=== PATIENT | female | born 1975 | race Caucasian/White ===

== ENCOUNTER 2023-07-25 09:55 | Emergency (ER) | payer SELFPAY ==
[2023-07-25 10:02] VITALS: BP 145/71; PULSE 75; RESP 20; TEMP 99.5; BMI 29.0
[2023-07-25] MEDS ORDERED: ONDANSETRON 4 MG/2 ML VIAL ONE (12:23)
[2023-07-25 12:28] LABS: HEMATOCRIT 33.3 % (32.4-45.2); MCH 20.4 pg (25.7-33.7); MEAN CELL VOLUME 68.2 fl (80-96); MEAN PLT VOLUME 7.2 fl (7.5-11.1); PLATELET COUNT 480 10^3/uL (134-434); RBC 4.89 M/mm3 (3.60-5.2); RDW 18.2 % (11.6-15.6); WHITE BLOOD COUNT 26.1 K/mm3 (4.0-10.0)
[2023-07-25 12:31] LABS: URINE APPEARANCE CLEAR; URINE BILIRUBIN NEGATIVE (NEGATIVE); URINE COLOR YELLOW; URINE GLUCOSE (UA) 3+ (NEGATIVE); URINE KETONE TRACE (NEGATIVE); URINE LEUK ESTERASE NEGATIVE (NEGATIVE); URINE NITRITE NEGATIVE (NEGATIVE); URINE PROTEIN NEGATIVE (NEGATIVE); URINE UROBILINOGEN 0.2 mg/dL (0.2-1.0)
[2023-07-25] MEDS: SODIUM CHLORIDE 0.9% 500 ML INFUS.BAG IV ONE (12:31)
[2023-07-25] MEDS: ONDANSETRON 4 MG/2 ML VIAL IVPB ONE (12:31)
[2023-07-25 12:34] LABS: HCG,QUALITATIVE URINE Negative
[2023-07-25 12:50] LABS: POTASSIUM 3.9 mmol/L (3.5-5.1)
[2023-07-25 12:52] LABS: ALBUMIN 3.3 g/dl (3.4-5.0); BLOOD UREA NITROGEN 11.4 mg/dL (7-18)
[2023-07-25 12:53] LABS: CALCIUM 8.8 mg/dL (8.5-10.1)
[2023-07-25 12:56] LABS: CREATININE 0.7 mg/dL (0.55-1.3)
[2023-07-25 12:57] LABS: BILIRUBIN,TOTAL 0.6 mg/dL (0.2-1)
[2023-07-25] MEDS ORDERED: ACETAMINOPHEN INJECTION 100 ML IVPB ONE (13:10)
[2023-07-25] MEDS ORDERED: FAMOTIDINE 20 MG/50 ML IVPB 20 MG/50 ML MG IVPB ONE (13:10)
[2023-07-25] MEDS: ACETAMINOPHEN 1000 MG/100 ML BAG IVPB ONE (13:10)
[2023-07-25 13:11] LABS: ANISOCYTOSIS 1+
[2023-07-25] MEDS: FAMOTIDINE 20 MG/50 ML IVPB 20 MG/50 ML MG IVPB ONE (13:11)
== END 2023-07-25 16:05 | disposition home or self-care (01) ==
LOC: JER 09:55
PROC: 3E033GC Introduction of Other Therapeutic Substance into Peripheral Vein, Percutaneous Approach (ICD-10-PCS; principal; 2023-07-25)
PROC: 3E030NZ Introduction of Analgesics, Hypnotics, Sedatives into Peripheral Vein, Open Approach (ICD-10-PCS; 2023-07-25)
PROC: 3E030GC Introduction of Other Therapeutic Substance into Peripheral Vein, Open Approach (ICD-10-PCS; 2023-07-25)
DX: K52.9 Noninfective gastroenteritis and colitis, unspecified (principal); R11.2 Nausea with vomiting, unspecified; R10.31 Right lower quadrant pain; R10.32 Left lower quadrant pain
CPT/HCPCS: 36415; 74177-TC; 80053; 81003; 84703; 85025; 87086; 99285-25; J0131; Q9967

== ENCOUNTER 2024-06-03 11:24 | Emergency (ER) | payer SELFPAY ==
[2024-06-03 11:40] VITALS: BP 133/51; PULSE 77; RESP 17; TEMP 98.2; BMI 32.9
[2024-06-03 12:40] LABS: URINE APPEARANCE CLEAR; URINE BILIRUBIN NEGATIVE (NEGATIVE); URINE COLOR YELLOW; URINE GLUCOSE (UA) 3+ (NEGATIVE); URINE KETONE NEGATIVE (NEGATIVE); URINE LEUK ESTERASE NEGATIVE (NEGATIVE); URINE NITRITE NEGATIVE (NEGATIVE); URINE PROTEIN NEGATIVE (NEGATIVE); URINE UROBILINOGEN 0.2 mg/dL (0.2-1.0)
[2024-06-03 12:42] LABS: HCG,QUALITATIVE URINE Negative
[2024-06-03] MEDS ORDERED: LIDOCAINE 4% PATCH TP ONE (12:53)
[2024-06-03] MEDS ORDERED: METHOCARBAMOL 500 MG TABLET ONE (12:53)
[2024-06-03] MEDS ORDERED: KETOROLAC TROMETHAMINE 30 MG/1 ML VIAL ONE (12:53)
[2024-06-03] MEDS: KETOROLAC TROMETHAMINE 30 MG/1 ML VIAL IM ONE (12:59)
[2024-06-03] MEDS: METHOCARBAMOL 500 MG TABLET PO ONE (12:59)
[2024-06-03] MEDS: LIDOCAINE 4% PATCH TP ONE (12:59)
== END 2024-06-03 13:47 | disposition home or self-care (01) ==
LOC: JERFT 11:24
PROC: 3E0233Z Introduction of Anti-inflammatory into Muscle, Percutaneous Approach (ICD-10-PCS; principal; 2024-06-03)
DX: S39.012A Strain of muscle, fascia and tendon of lower back, initial encounter (principal); X50.1XXA Overexertion from prolonged static or awkward postures, initial encounter
CPT/HCPCS: 81003; 84703; 87086; 87186; 99284-25